=== PATIENT | male | born 1980 | race Hispanic/Latino ===

== ENCOUNTER 2025-01-10 08:09 | Day surgery (SDC) | payer MEDICARE, BC ==
[2025-01-10] VITALS (10 sets, daily range): BP systolic 103–162; BP diastolic 57–73; PULSE 77–86; RESP 14–18; TEMP 97.6–97.9
[~2025-01-10] VITALS: Ht 182.9 cm; Wt 122.5 kg
[~2025-01-10 08:09] MED LIST: CARV25TA PO; FOLI0.8T22 PO; GABA300C PO; LORA10TA7 PO; NIFE-78 PO; ROSU10TA72 PO; TAMS-1 PO; TELM80TA10 PO
[2025-01-10] MEDS: 0.9% NACL 500ML IV.SOLN 500 ML IV ONE (10:58)
[2025-01-10] MEDS ORDERED: LIDOCAINE HCL 1% 20 ML VIAL ONE (12:26)
[2025-01-10] MEDS ORDERED: proPOFol 10 MG/ML 20ML VIAL IV ONE ×2 (12:26)
== END 2025-01-10 13:50 | disposition home or self-care (01) ==
LOC: ENDO 08:09 → DAH 08:09 → ENDO 13:50
PROVIDERS: ATTEND Internal Medicine Gastroenterology
DX: Z12.11 Encounter for screening for malignant neoplasm of colon (principal); K63.89 Other specified diseases of intestine; R14.2 Eructation; R14.0 Abdominal distension (gaseous); R12 Heartburn; K29.70 Gastritis, unspecified, without bleeding; F32.A Depression, unspecified; E11.22 Type 2 diabetes mellitus with diabetic chronic kidney disease; I12.0 Hypertensive chronic kidney disease with stage 5 chronic kidney disease or end stage renal disease; N18.6 End stage renal disease; E11.43 Type 2 diabetes mellitus with diabetic autonomic (poly)neuropathy; K31.84 Gastroparesis; E78.00 Pure hypercholesterolemia, unspecified; E66.9 Obesity, unspecified; Z79.82 Long term (current) use of aspirin; Z79.4 Long term (current) use of insulin; Z86.73 Personal history of transient ischemic attack (TIA), and cerebral infarction without residual deficits; Z86.2 Personal history of diseases of the blood and blood-forming organs and certain disorders involving the immune mechanism; Z79.899 Other long term (current) drug therapy; Z90.89 Acquired absence of other organs; Z68.37 Body mass index [BMI] 37.0-37.9, adult; Z80.0 Family history of malignant neoplasm of digestive organs
CPT/HCPCS: 82948 ×2; 43239; 45378; J7040; J2704 ×2; A4620; A4215 ×2; A4223; A4222; A4221; A4663; J7030; A4606; J3490

== ENCOUNTER 2025-02-21 08:08 | Day surgery (SDC) | payer BC, MEDICARE ==
[2025-02-21] VITALS (9 sets, daily range): BP systolic 123–175; BP diastolic 40–86; PULSE 78–88; RESP 13–20; TEMP 96.6–97.5
[~2025-02-21] VITALS: Ht 182.9 cm; Wt 122.9 kg
[~2025-02-21 08:08] MED LIST changes: +0.9%NACL 1000ML 0 ML IV ONE
[2025-02-21] MEDS: 0.9% NACL 500ML IV.SOLN 500 ML IV ONE (10:04)
[2025-02-21] MEDS ORDERED: proPOFol 10 MG/ML 20ML VIAL IV ONE ×2 (12:02→12:38)
== END 2025-02-21 13:37 | disposition home or self-care (01) ==
LOC: ENDO 08:08 → DAH 08:08 → ENDO 13:37
PROVIDERS: ATTEND Internal Medicine Gastroenterology
DX: R14.0 Abdominal distension (gaseous) (principal); K64.1 Second degree hemorrhoids; K64.4 Residual hemorrhoidal skin tags; I25.10 Atherosclerotic heart disease of native coronary artery without angina pectoris; I25.2 Old myocardial infarction; G47.33 Obstructive sleep apnea (adult) (pediatric); F41.9 Anxiety disorder, unspecified; F32.A Depression, unspecified; K29.50 Unspecified chronic gastritis without bleeding; R14.2 Eructation; R12 Heartburn; E78.00 Pure hypercholesterolemia, unspecified; I12.0 Hypertensive chronic kidney disease with stage 5 chronic kidney disease or end stage renal disease; E11.22 Type 2 diabetes mellitus with diabetic chronic kidney disease; N18.6 End stage renal disease; R93.3 Abnormal findings on diagnostic imaging of other parts of digestive tract; Z79.4 Long term (current) use of insulin; Z99.89 Dependence on other enabling machines and devices; Z80.0 Family history of malignant neoplasm of digestive organs; Z86.73 Personal history of transient ischemic attack (TIA), and cerebral infarction without residual deficits; Z90.89 Acquired absence of other organs; Z79.82 Long term (current) use of aspirin; Z79.899 Other long term (current) drug therapy
CPT/HCPCS: 45378; 00811; 82948 ×2; J7040; J2704 ×2; A4620; A4215 ×2; A4223; A4222; A4221; A4663; A4606; J7030; J3490